=== PATIENT | female | born 1970 | race Caucasian/White ===

== ENCOUNTER 2016-02-23 21:28 | Emergency (ER) | payer MEDICAID ==
--- NOTE | 2016-02-23 21:35 | ER Document Report ---
ED Medical Screen (RME) - General Stated Complaint: URINARY PROBLEM Mode of Arrival: Ambulatory Information source: Patient Notes: pt presents to the ED for c/o urinary frequency and pain with void for almost 2 weeks. Denies f/v/d, reports started after she took amoxicillin for sinus infection. She denies vaginal discharge or itching. TRAVEL OUTSIDE OF THE [place] IN LAST 30 DAYS: No - Related Data Allergies/Adverse Reactions: ibuprofen [Ibuprofen] Allergy (Verified 05/12/15 09:24) Past Medical History Pulmonary Medical History: Reports: Hx Asthma, Hx COPD Neurological Medical History: Reports: Hx Migraine Renal/ Medical History: Reports: Hx Kidney Stones GI Medical History: Reports: Hx Gastroesophageal Reflux Disease Musculoskeltal Medical History: Reports Hx Arthritis Skin Medical History: Reports Hx Cellulitis Traumatic Medical History: Reports: Hx Fractures Past Surgical History: Reports: Hx Cholecystectomy, Hx Orthopedic Surgery - right knee - Immunizations Immunizations up to date: Yes Hx Diphtheria, Pertussis, Tetanus Vaccination: No
[2016-02-23] MEDS ORDERED: PHENAZOPYRIDINE HCL 200 MG TABLET PO ONE (23:37)
--- NOTE | 2016-02-23 23:38 | ER Document Report ---
ED General - General Chief Complaint: Urinary Frequency Stated Complaint: URINARY PROBLEM Mode of Arrival: Ambulatory Information source: Patient Notes: 45 yr old female presents with complaints of 2 week duration of burning on urination. pressure in the bladder and urinary frequency. pt denies any fevers or chills, nausea or vomiting. pt admits to mild chronic back pain TRAVEL OUTSIDE OF THE [place] IN LAST 30 DAYS: No - HPI Onset: Other - 2 week duration Onset/Duration: Persistent Quality of pain: Pressure Severity: Mild Pain Level: 1 Associated symptoms: Other Exacerbated by: Other - urination Relieved by: Denies Similar symptoms previously: Yes Recently seen / treated by doctor: No - Related Data Allergies/Adverse Reactions: ibuprofen [Ibuprofen] Allergy (Verified 05/12/15 09:24) Past Medical History - General Information source: Patient - Social History Smoking Status: Current Every Day Smoker Cigarette use (# per day): No Chew tobacco use (# tins/day): No Smoking Education Provided: No Frequency of alcohol use: None Drug Abuse: None Family History: Reviewed & Not Pertinent Pulmonary Medical History: Reports: Hx Asthma, Hx COPD Neurological Medical History: Reports: Hx Migraine Renal/ Medical History: Reports: Hx Kidney Stones. Denies: Hx Peritoneal Dialysis GI Medical History: Reports: Hx Gastroesophageal Reflux Disease Musculoskeltal Medical History: Reports Hx Arthritis Skin Medical History: Reports Hx Cellulitis Traumatic Medical History: Reports: Hx Fractures Past Surgical History: Reports: Hx Cholecystectomy, Hx Orthopedic Surgery - right knee - Immunizations Immunizations up to date: Yes Hx Diphtheria, Pertussis, Tetanus Vaccination: No Review of Systems - Review of Systems Notes: REVIEW OF SYSTEMS: CONSTITUTIONAL : Denies fever, chills, or sweats. Denies recent illness. EENT: Denies eye, ear, throat, or mouth pain or symptoms. Denies nasal or sinus congestion or discharge. Denies throat, tongue, or mouth swelling or difficulty swallowing. CARDIOVASCULAR: Denies chest pain. Denies palpitations or racing or irregular heart beat. Denies ankle edema. RESPIRATORY: Denies cough, cold, or chest congestion. Denies shortness of breath, difficulty breathing, or wheezing. GASTROINTESTINAL: Denies abdominal pain or distention. Denies nausea, vomiting , or diarrhea. Denies blood in vomitus, stools, or per rectum. Denies black, tarry stools. Denies constipation. GENITOURINARY: admits to pressure sensaiton, burning and frequency FEMALE GENITOURINARY: Denies vaginal bleeding, heavy or abnormal periods, irregular periods. Denies vaginal discharge or odor. MUSCULOSKELETAL: Denies back or neck pain or stiffness. Denies joint pain or swelling. SKIN: Denies rash, lesions or sores. HEMATOLOGIC : Denies easy bruising or bleeding. LYMPHATIC: Denies swollen, enlarged glands. NEUROLOGICAL: Denies confusion or altered mental status. Denies passing out or loss of consciousness. Denies dizziness or lightheadedness. Denies headache. Denies weakness or paralysis or loss of use of either side. Denies problems with gait or speech. Denies sensory loss, numbness, or tingling. Denies seizures. PSYCHIATRIC: Denies anxiety or stress. Denies depression, suicidal ideation, or homicidal ideation. ALL OTHER SYSTEMS REVIEWED AND NEGATIVE. Dictation was performed using [employer] voice recognition software PHYSICAL EXAMINATION: GENERAL: Well-appearing, well-nourished and in no acute distress. HEAD: Atraumatic, normocephalic. EYES: Pupils equal round and reactive to light, extraocular movements intact, conjunctiva are normal. ENT: Nares patent, oropharynx clear without exudates. Moist mucous membranes. NECK: Normal range of motion, supple without lymphadenopathy LUNGS: Breath sounds clear to auscultation bilaterally and equal. No wheezes rales or rhonchi. HEART: Regular rate and rhythm without murmurs ABDOMEN: Soft, nontender, nondistended abdomen. No guarding, no rebound. No masses appreciated. mild suprapubic pressure no cva tendernes Female : deferred Musculoskeletal: Normal range of motion, no pitting or edema. No cyanosis. NEUROLOGICAL: Cranial nerves grossly intact. Normal speech, normal gait. Normal sensory, motor exams PSYCH: Normal mood, normal affect. SKIN: Warm, Dry, normal turgor, no rashes or lesions noted. Physical Exam - Vital signs Vitals: Temp Pulse Resp BP Pulse Ox 98.1 F 89 20 132/83 H 95 02/23/16 21:37 02/23/16 21:37 02/23/16 21:37 02/23/16 21:37 02/23/16 21:37 Course - Re-evaluation Re-evalutation: 02/23/16 23:51 Patient has probable UTI, urinalysis is pending. pyridium and antibiotics will be given as necessary 02/23/16 23:59 Urinalysis is consistent with a UTI, patient will be started on antibiotics and is otherwise stable for discharge After performing a Medical Screening Examination, I estimate there is LOW risk for ACUTE APPENDICITIS, BOWEL OBSTRUCTION, ACUTE CHOLECYSTITIS, PERFORATED DIVERTICULITIS, INCARCERATED HERNIA, PANCREATITIS, PELVIC INFLAMMATORY DISEASE, PERFORATED ULCER, ECTOPIC , or TUBO-OVARIAN ABSCESS, thus I consider the discharge disposition reasonable. Also, there is no evidence or peritonitis , sepsis, or toxicity. The patient and I have discussed the diagnosis and risks , and we agree with discharging home with close follow-up with the understanding that symptoms and presentations can change. We also discussed returning to the Emergency Department immediately if new or worsening symptoms occur. We have discussed the symptoms which are most concerning (e.g., bloody stool, fever, changing or worsening pain, vomiting) that necessitate immediate return. - Vital Signs Vital signs: Temp Pulse Resp BP Pulse Ox 98.1 F 89 20 132/83 H 95 02/23/16 21:37 02/23/16 21:37 02/23/16 21:37 02/23/16 21:37 02/23/16 21:37 - Laboratory Laboratory results interpreted by me: 02/23/16 23:20 Urine Protein 30 H Urine Ketones TRACE H Urine Urobilinogen 2.0 H Ur Leukocyte Esterase LARGE H Discharge - Discharge Clinical Impression: Increased frequency of urination Urinary tract infection Qualifiers: Urinary tract infection type: acute cystitis Hematuria presence: without hematuria Qualified Code(s): N30.00 - Acute cystitis without hematuria Condition: Stable Disposition: HOME, SELF-CARE Instructions: Urinary Tract Infection ([facility]) Prescriptions: Cephalexin Monohydrate [Keflex 500 mg Capsule] 500 mg PO BID #10 capsule Phenazopyridine HCl [Pyridium 200 mg Tablet] 200 mg PO TID #15 tablet Referrals: NADIRA ERVIN MD [Primary Care Provider] - Follow up in 1 week
[2016-02-23 23:57] LABS: APPEARANCE,URINE SLIGHTLY-CLOUDY; BILIRUBIN,URINE NEGATIVE (NEGATIVE); GLUCOSE, URINE NEGATIVE (NEGATIVE); KETONES,URINE TRACE mg/dL (NEGATIVE); LEUKOCYTE ESTERASE,URINE LARGE (NEGATIVE); NITRITE,URINE NEGATIVE (NEGATIVE); PROTEIN,URINE 30 mg/dL (NEGATIVE); URINE SPECIFIC GRAVITY 1.028
[2016-02-23] MEDS ORDERED: CEPHALEXIN 500 MG CAPSULE PO ONE (23:59)
[2016-02-24 00:22] VITALS: BP 137/77
== END 2016-02-24 00:15 | disposition home or self-care (01) ==
LOC: ER 21:28
DX: N30.00 Acute cystitis without hematuria (principal); R35.0 Frequency of micturition; R30.0 Dysuria; M54.9 Dorsalgia, unspecified; G89.29 Other chronic pain; J45.909 Unspecified asthma, uncomplicated; J44.9 Chronic obstructive pulmonary disease, unspecified; F17.200 Nicotine dependence, unspecified, uncomplicated; Z88.6 Allergy status to analgesic agent; Z87.442 Personal history of urinary calculi
CPT/HCPCS: 99283; 87086; 81025; 87088; 81001; 87186; J3490

== ENCOUNTER 2016-04-05 18:15 | Emergency (ER) | payer MEDICAID ==
[2016-04-05 18:20] VITALS: BP 127/76
--- NOTE | 2016-04-05 18:49 | ER Document Report ---
ED Medical Screen (RME) - General Stated Complaint: LEFT LEG PAIN Mode of Arrival: Ambulatory Information source: Patient Notes: Patient was tripped by a dog on a leash and the cord wrapped around her left ankle. Patient with abrasion to left anterior ankle. I have greeted and performed a rapid initial assessment of this patient. A comprehensive ED assessment and evaluation of the patient, analysis of test results and completion of the medical decision making process will be conducted by additional ED providers. TRAVEL OUTSIDE OF THE [place] IN LAST 30 DAYS: No - Related Data Allergies/Adverse Reactions: ibuprofen [Ibuprofen] Allergy (Verified 04/05/16 18:47) Past Medical History Pulmonary Medical History: Reports: Hx Asthma, Hx COPD Neurological Medical History: Reports: Hx Migraine Renal/ Medical History: Reports: Hx Kidney Stones. Denies: Hx Peritoneal Dialysis GI Medical History: Reports: Hx Gastroesophageal Reflux Disease Musculoskeltal Medical History: Reports Hx Arthritis Skin Medical History: Reports Hx Cellulitis Traumatic Medical History: Reports: Hx Fractures Past Surgical History: Reports: Hx Cholecystectomy, Hx Orthopedic Surgery - right knee - Immunizations Immunizations up to date: Yes Hx Diphtheria, Pertussis, Tetanus Vaccination: No Physical Exam - Vital signs Vitals: Temp Pulse Resp BP Pulse Ox 98.3 F 95 16 127/76 H 96 04/05/16 18:19 04/05/16 18:19 04/05/16 18:19 04/05/16 18:19 04/05/16 18:19 - Skin Skin irregularity: other - Operation anterior aspect of left ankle Course - Vital Signs Vital signs: Temp Pulse Resp BP Pulse Ox 98.3 F 95 16 127/76 H 96 04/05/16 18:19 04/05/16 18:19 04/05/16 18:19 04/05/16 18:19 04/05/16 18:19
[2016-04-05] MEDS ORDERED: DIPH/PERTUSS(ACELL)/TETANUS VAC/PF 0.5 ML SYR (>=10YO) IM ONE (20:43)
[2016-04-05] MEDS ORDERED: TRAMADOL HCL 50 MG TABLET PO ONE (20:45)
--- NOTE | 2016-04-05 20:45 | ER Document Report ---
ED Extremity Problem, Lower - General Chief Complaint: Ankle Pain Stated Complaint: LEFT LEG PAIN Mode of Arrival: Ambulatory Notes: Patient is a 45-year-old female who comes in after her family dog wrapped its leash around her leg. Patient has an abrasion to her left leg. Patient is also complaining of ankle pain. Patient did not fall. No other injuries. Patient is unsure of her last tetanus but states it was greater than 5 years. Patient is able to weight-bear but it is painful. TRAVEL OUTSIDE OF THE [place] IN LAST 30 DAYS: No - HPI Patient complains to provider of: Pain Location: Ankle, Leg Occurred: Yesterday Where: Home Quality of pain: Dull Severity: Moderate Pain Level: 2 Recent injury: Yes Exacerbated by: Movement Relieved by: Rest - Related Data Allergies/Adverse Reactions: ibuprofen [Ibuprofen] Allergy (Verified 04/05/16 18:47) Past Medical History - General Information source: Patient - Social History Smoking Status: Never Smoker Chew tobacco use (# tins/day): No Frequency of alcohol use: None Drug Abuse: None Family History: Reviewed & Not Pertinent Patient has suicidal ideation: No Patient has homicidal ideation: No Pulmonary Medical History: Reports: Hx Asthma, Hx COPD Neurological Medical History: Reports: Hx Migraine Renal/ Medical History: Reports: Hx Kidney Stones. Denies: Hx Peritoneal Dialysis GI Medical History: Reports: Hx Gastroesophageal Reflux Disease Musculoskeltal Medical History: Reports Hx Arthritis Skin Medical History: Reports Hx Cellulitis Traumatic Medical History: Reports: Hx Fractures Past Surgical History: Reports: Hx Cholecystectomy, Hx Orthopedic Surgery - right knee - Immunizations Immunizations up to date: Yes Hx Diphtheria, Pertussis, Tetanus Vaccination: No Review of Systems - Review of Systems Constitutional: No symptoms reported EENT: No symptoms reported Cardiovascular: No symptoms reported Respiratory: No symptoms reported Gastrointestinal: No symptoms reported Genitourinary: No symptoms reported Female Genitourinary: No symptoms reported Musculoskeletal: See HPI Skin: See HPI Hematologic/Lymphatic: No symptoms reported Neurological/Psychological: No symptoms reported Physical Exam - Vital signs Vitals: Temp Pulse Resp BP Pulse Ox 98.3 F 95 16 127/76 H 96 04/05/16 18:19 04/05/16 18:19 04/05/16 18:19 04/05/16 18:19 04/05/16 18:19 Interpretation: Normal - General General appearance: Appears well, Alert - HEENT Head: Normocephalic, Atraumatic Eyes: Normal Pupils: PERRL - Respiratory Respiratory status: No respiratory distress Chest status: Nontender Breath sounds: Normal Chest palpation: Normal - Cardiovascular Rhythm: Regular Heart sounds: Normal auscultation Murmur: No - Abdominal Inspection: Normal Distension: No distension Bowel sounds: Normal Tenderness: Nontender Organomegaly: No organomegaly - Back Back: Normal, Nontender - Extremities General upper extremity: Normal inspection, Nontender, Normal color, Normal ROM , Normal temperature General lower extremity: Tender, Normal color, Normal ROM, Normal temperature. No: Michele's sign Hip: Normal Thigh: Normal Knee: Normal Calf: Normal Ankle: Tender - Anteriorly. No tenderness to palp patient over medial or lateral malleolus. Sensation intact. Pulses intact. Abrasion over distal left tibia. No erythema or discharge. No bleeding. - Neurological Neuro grossly intact: Yes Cognition: Normal Orientation: AAOx4 Cambria Coma Scale Eye Opening: Spontaneous Cambria Coma Scale Verbal: Oriented [place] Coma Scale Motor: Obeys Commands Nick Coma Scale Total: 15 Speech: Normal Motor strength normal: LUE, RUE, LLE, RLE Sensory: Normal - Psychological Associated symptoms: Normal affect, Normal mood - Skin Skin Temperature: Warm Skin Moisture: Dry Skin Color: Normal Course - Re-evaluation Re-evalutation: 04/05/16 Acute findings on x-ray. Patient will be given an updated tetanus shot. Patient is not diabetic. No evidence for cellulitis. Continue bacitracin to leg. Will be given Dandy wrap for ankle. Stable for discharge home. Patient has crutches at home. Follow-up with PMD. Return if any worsening or concerning symptoms. Stable for discharge. - Vital Signs Vital signs: Temp Pulse Resp BP Pulse Ox 98.3 F 95 16 127/76 H 96 04/05/16 18:19 04/05/16 18:19 04/05/16 18:19 04/05/16 18:19 04/05/16 18:19 - Diagnostic Test Radiology reviewed: Reports reviewed Procedures - Immobilization Left Ankle Pre-Proc Neuro Vasc Exam: Normal Immobilizer type: Dandy wrap Performed by: SEJAL Post-Proc Neuro Vasc Exam: Normal Alignment checked and good: Yes Discharge - Discharge Clinical Impression: Lower leg abrasion, Muscle strain of left ankle Condition: Stable Disposition: HOME, SELF-CARE Instructions: Abrasions (OM), Muscle Strain (OM), Tetanus Immunization Given ([facility]) Prescriptions: Tramadol HCl [Ultram 50 mg Tablet] 50 mg PO BIDP PRN #20 tablet PRN Reason: Forms: Return to Work
== END 2016-04-05 21:10 | disposition home or self-care (01) ==
LOC: ER 18:15
DX: S96.912A Strain of unspecified muscle and tendon at ankle and foot level, left foot, initial encounter (principal); S80.812A Abrasion, left lower leg, initial encounter; W23.0XXA Caught, crushed, jammed, or pinched between moving objects, initial encounter; Y92.009 Unspecified place in unspecified non-institutional (private) residence as the place of occurrence of the external cause; J44.9 Chronic obstructive pulmonary disease, unspecified; J45.909 Unspecified asthma, uncomplicated; Z88.6 Allergy status to analgesic agent; Z23 Encounter for immunization
CPT/HCPCS: 90471; 90715; 99283

== ENCOUNTER 2016-12-09 19:32 | Emergency (ER) | payer MEDICAID ==
[2016-12-09] MEDS ORDERED: DIAZEPAM 5 MG TABLET PO ONE (21:53)
--- NOTE | 2016-12-09 21:57 | ER Document Report ---
HPI - HPI Patient complains to provider of: lower back pain Pain Level: 5 Context: Patient is a 46-year-old female comes emergency department for chief complaint of lower back pain. She states that she was lying on her bed and her 40 pound dog jumped on her, she states that the area has become tighter and more painful to move over the last 24 hours. She denies radiating pain, numbness, loss of bowel or bladder control, midline pain. She denies any other injuries or any other symptoms. - REPRODUCTIVE Reproductive: DENIES: : - DERM Skin Color: Normal Past Medical History - General Information source: Patient - Social History Smoking Status: Current Every Day Smoker Drug Abuse: None Lives with: Spouse/Significant other Family History: Reviewed & Not Pertinent Patient has suicidal ideation: No Patient has homicidal ideation: No Pulmonary Medical History: Reports: Hx Asthma, Hx COPD Neurological Medical History: Reports: Hx Migraine Renal/ Medical History: Reports: Hx Kidney Stones. Denies: Hx Peritoneal Dialysis GI Medical History: Reports: Hx Gastroesophageal Reflux Disease Musculoskeltal Medical History: Reports Hx Arthritis Skin Medical History: Reports Hx Cellulitis Traumatic Medical History: Reports: Hx Fractures Past Surgical History: Reports: Hx Cholecystectomy, Hx Orthopedic Surgery - right knee - Immunizations Immunizations up to date: Yes Hx Diphtheria, Pertussis, Tetanus Vaccination: No Vertical Provider Document - CONSTITUTIONAL General Appearance: WD/WN, No Apparent Distress - Patient moves stiffly but otherwise she is in no distress - INFECTION CONTROL TRAVEL OUTSIDE OF THE [place] IN LAST 30 DAYS: No - HEENT HEENT: Atraumatic, Normocephalic - NECK Neck: Normal Inspection - RESPIRATORY Respiratory: Breath Sounds Normal, No Respiratory Distress O2 Sat by Pulse Oximetry: 97 - CARDIOVASCULAR Cardiovascular: Regular Rate, Regular Rhythm - GI/ABDOMEN Gastrointestinal: Abdomen Soft, Abdomen Non-Tender - BACK Back: negative: Normal Inspection - Pain over the bilateral paralumbar muscular areas, no midline tenderness, no saddle anesthesia, negative straight leg raise , normal upper and lower extremity range of motion, strength, distal neurovascular exam - MUSCULOSKELETAL/EXTREMETIES Musculoskeletal/Extremeties: MAEW, FROM, Non-Tender - DERM Integumentary: Warm - There are leach over her back in long lines, appear to be scratches, no broken skin, no bleeding, no other abnormalities noted over the skin Course - Re-evaluation Re-evalutation: No open wounds or abrasions requiring treatment or antibiotics. Examination is consistent with muscular skeletal strain with no concerning abnormalities, no saddle anesthesia, no midline tenderness, no numbness, ambulates without difficulty, unremarkable vital signs, no red flag symptoms or findings. Treating symptomatically. Discussed follow-up and return precautions. Patient states understanding and agreement. - Vital Signs Vital signs: Temp Pulse Resp BP Pulse Ox 98.3 F 85 20 145/104 H 97 12/09/16 19:55 12/09/16 19:55 12/09/16 19:55 12/09/16 19:55 12/09/16 19:55 Discharge - Discharge Clinical Impression: Lower back pain Qualifiers: Chronicity: acute Back pain laterality: bilateral Sciatica presence: without sciatica Qualified Code(s): M54.5 - Low back pain Condition: Stable Disposition: HOME, SELF-CARE Additional Instructions: Your examination is consistent with muscular strain of the lower back. Take the prescribed medication, apply heat to your back, rest your back, avoid lifting or twisting for the next several days. Follow-up with primary care. Return to the emergency department for any concerning or worsening symptoms including numbness, loss of bowel or bladder control, fever, or any other concerning symptoms. Prescriptions: Methocarbamol [Robaxin 750 mg Tablet] 750 mg PO Q6 #20 tablet
[2016-12-09 22:13] VITALS: BP 135/73
== END 2016-12-09 22:13 | disposition home or self-care (01) ==
LOC: ER 19:32
DX: M54.5 Low back pain (principal); W54.1XXA Struck by dog, initial encounter; J44.9 Chronic obstructive pulmonary disease, unspecified; F17.200 Nicotine dependence, unspecified, uncomplicated
CPT/HCPCS: 99283; J3490

== ENCOUNTER 2016-12-22 12:44 | Emergency (ER) | payer MEDICAID ==
[2016-12-22 13:01] VITALS: BP 141/61
--- NOTE | 2016-12-22 14:14 | ER Document Report ---
HPI - HPI Pain Level: 5 Notes: Patient is a 46-year-old female with no significant medical history presents the ED complaining of left ankle pain x2 days. Patient states that she is always twisting her ankles and has large dogs that usually jump on her at times as well. Patient states that the pain in the ankles anterior. Patient states that movements make the pain worse. She has no numbness or tingling. She has not noticed any obvious redness or bruising. Patient states that she does have some swelling on occasion of left ankle. She denies any history of gout. patient denies any IV drug use. Denies any headache, fever, chest pain, palpitations, syncope, cough, shortness of breath, wheeze, dyspnea, abdominal pain, nausea/vomiting/diarrhea, dysuria, hematuria, back pain, loss of control of bowel or bladder, numbness/tingling, saddle anesthesia, muscle paralysis/ weakness, or rash. - ROS Notes: REVIEW OF SYSTEMS: CONSTITUTIONAL : Denies fever, chills, or sweats. Denies recent illness. EENT: Denies eye, ear, throat, or mouth pain or symptoms. Denies nasal or sinus congestion or discharge. Denies throat, tongue, or mouth swelling or difficulty swallowing. CARDIOVASCULAR: Denies chest pain. Denies palpitations or racing or irregular heart beat. Denies ankle edema. RESPIRATORY: Denies cough, cold, or chest congestion. Denies shortness of breath, difficulty breathing, or wheezing. GASTROINTESTINAL: Denies abdominal pain or distention. Denies nausea, vomiting , or diarrhea. Denies blood in vomitus, stools, or per rectum. Denies black, tarry stools. Denies constipation. GENITOURINARY: Denies difficulty urinating, painful urination, burning, frequency, blood in urine, or discharge. MUSCULOSKELETAL: see hpi SKIN: Denies rash, lesions or sores. NEUROLOGICAL: Denies confusion or altered mental status. Denies passing out or loss of consciousness. Denies dizziness or lightheadedness. Denies headache. Denies weakness or paralysis or loss of use of either side. Denies problems with gait or speech. Denies sensory loss, numbness, or tingling. ALL OTHER SYSTEMS REVIEWED AND NEGATIVE. Dictation was performed using [employer] voice recognition software - REPRODUCTIVE Reproductive: DENIES: : - DERM Skin Color: Normal Past Medical History - Social History Smoking Status: Unknown if Ever Smoked Family History: Reviewed & Not Pertinent Patient has suicidal ideation: No Patient has homicidal ideation: No Pulmonary Medical History: Reports: Hx Asthma, Hx COPD Neurological Medical History: Reports: Hx Migraine Renal/ Medical History: Reports: Hx Kidney Stones. Denies: Hx Peritoneal Dialysis GI Medical History: Reports: Hx Gastroesophageal Reflux Disease Musculoskeltal Medical History: Reports Hx Arthritis Skin Medical History: Reports Hx Cellulitis Traumatic Medical History: Reports: Hx Fractures Past Surgical History: Reports: Hx Cholecystectomy, Hx Orthopedic Surgery - right knee - Immunizations Immunizations up to date: Yes Hx Diphtheria, Pertussis, Tetanus Vaccination: No Vertical Provider Document - CONSTITUTIONAL Agree With Documented VS: Yes Notes: PHYSICAL EXAMINATION: GENERAL: Well-appearing, well-nourished and in no acute distress. LUNGS: Breath sounds clear to auscultation bilaterally and equal. No wheezes rales or rhonchi. HEART: Regular rate and rhythm without murmurs, rubs, gallops. Musculoskeletal: Lt ankle/foot: FROM to passive/active. Strength 5+/5. No obvious swelling, deformity, abrasion, ecchymosis. N/V intact distal. + mild tenderness to the anteroproximal ankle. No other bony tenderness. Achilles intact. Extremities: No cyanosis, clubbing, or edema b/l. Peripheral pulses 2+. Capillary refill less than 3 seconds. NEUROLOGICAL: Normal speech, limping gait. Normal sensory, motor exams PSYCH: Normal mood, normal affect. SKIN: Warm, Dry, normal turgor, no rashes or lesions noted. - INFECTION CONTROL TRAVEL OUTSIDE OF THE [place] IN LAST 30 DAYS: No - RESPIRATORY O2 Sat by Pulse Oximetry: 95 Course - Re-evaluation Re-evalutation: 12/22/16 15:11 Patient is an afebrile, well-hydrated, 46-year-old female who presents the ED with left ankle pain, suspect strain versus sprain. Vitals are stable. PE is otherwise unremarkable for any neurovascular compromise, obvious tendon/ ligament rupture, obvious fracture or dislocation. X-ray was unremarkable for any acute pathology aside from soft tissue swelling. Low suspicion for any sepsis, septic joint, or other systemic emergent condition at this time. An ankle stirrup splint was placed today along with crutches provided. Conservative measures for symptoms. Recheck with your PCM in 3-5 days. Consider consult with orthopedics and/or physical therapy. Return to the ED with any worsening/concerning symptoms otherwise as reviewed in discharge. Patient is in agreement. - Vital Signs Vital signs: Temp Pulse Resp BP Pulse Ox 98.7 F 104 H 18 141/61 H 95 12/22/16 12:59 12/22/16 12:59 12/22/16 12:59 12/22/16 12:59 12/22/16 12:59 Discharge - Discharge Clinical Impression: Left ankle pain Qualifiers: Chronicity: acute Qualified Code(s): M25.572 - Pain in left ankle and joints of left foot Condition: Stable Disposition: HOME, SELF-CARE Instructions: Ankle Stirrup Splint ([facility]), Use of Crutches ([facility]), Ice & Elevation ([facility]), Sprained Ankle ([facility]) Additional Instructions: Rest, Ice, Compression, Elevation Use splint/crutches as directed Tylenol/ibuprofen as needed Light stretches daily Strength exercises as able Moist heat and massage may help F/u with your PCP in 3-5 days for a recheck Consider consult(s) with Orthopedics/physical therapy for ongoing/worsening symptoms Return to the ED with any worsening symptoms and/or development of fever, headache, chest pain, palpitations, syncope, shortness of breath, trouble breathing, abdominal pain, n/v/d, muscle weakness/paralysis, numbness/tingling, swelling, redness, or other worsening symptoms that are concerning to you. Referrals: [facility] [Provider Group] - Follow up as needed
--- NOTE | 2016-12-22 15:00 | RADIOLOGY REPORT (SQ) ---
EXAM DESCRIPTION: ANKLE LEFT COMPLETE COMPLETED DATE/TIME: 12/22/2016 2:18 pm REASON FOR STUDY: left ankle pain COMPARISON: 04/05/2016 NUMBER OF VIEWS: Three views. TECHNIQUE: AP, lateral, and oblique radiographic images acquired of the left ankle. LIMITATIONS: None. FINDINGS: MINERALIZATION: Normal. BONES: No acute fracture or dislocation. No worrisome bone lesions. JOINTS: No effusions. SOFT TISSUES: Diffuse swelling. No foreign body. OTHER: No other significant finding. IMPRESSION: Soft tissue injury. TECHNICAL DOCUMENTATION: JOB ID: [id number] [employer]- All Rights Reserved
== END 2016-12-22 15:42 | disposition home or self-care (01) ==
LOC: ER 12:44
DX: M25.572 Pain in left ankle and joints of left foot (principal); M79.89 Other specified soft tissue disorders; J44.9 Chronic obstructive pulmonary disease, unspecified
CPT/HCPCS: 99283; 73610; L1902

== ENCOUNTER 2017-02-27 17:12 | Emergency (ER) | payer MEDICAID ==
[2017-02-27] MEDS ORDERED: LIDOCAINE 2% VISCOUS SOLN 20 ML UDCUP PO ONE (19:35)
--- NOTE | 2017-02-27 19:40 | ER Document Report ---
HPI - HPI Pain Level: 5 Notes: Patient is a 46-year-old female who presents the ED complaining of right lower jaw swelling and dental pain 2 days. Patient states that she has had a decreased p.o. intake due to the pain, but is still drinking plenty of fluids. She is urinating normally and having normal bowel movements. The pain in her jaw radiates up towards her cheek and towards her rt lateral neck. She has not noticed any obvious abscess or discharge otherwise. Patient states that she does have bad dentition and has had infections in the past. No other concerns or complaints at this time. Denies any headache, fever, head injury, changes in vision/speech/mentation/hearing, URI, sore throat, chest pain, palpitations, syncope, cough, shortness of breath, wheeze, dyspnea, abdominal pain, nausea/ vomiting/diarrhea, urinary retention, dysuria, hematuria, loss of control of bowel or bladder, numbness/tingling, or rash. - ROS Notes: REVIEW OF SYSTEMS: CONSTITUTIONAL : Denies fever, chills, or sweats. Denies recent illness. EENT: see hpi CARDIOVASCULAR: Denies chest pain. Denies palpitations or racing or irregular heart beat. RESPIRATORY: Denies cough, cold, or chest congestion. Denies shortness of breath, difficulty breathing, or wheezing. GASTROINTESTINAL: Denies abdominal pain or distention. Denies nausea, vomiting , or diarrhea. Denies blood in vomitus, stools, or per rectum. Denies black, tarry stools. Denies constipation. GENITOURINARY: Denies difficulty urinating, painful urination, burning, frequency, blood in urine, or discharge. MUSCULOSKELETAL: Denies back or neck pain or stiffness. Denies joint pain or swelling. SKIN: Denies rash, lesions or sores. NEUROLOGICAL: Denies confusion or altered mental status. Denies passing out or loss of consciousness. Denies dizziness or lightheadedness. Denies headache. Denies problems with gait or speech. Denies sensory loss, numbness, or tingling. Denies seizures. ALL OTHER SYSTEMS REVIEWED AND NEGATIVE. Dictation was performed using [employer] voice recognition software - REPRODUCTIVE Reproductive: DENIES: : Past Medical History - Social History Smoking Status: Current Every Day Smoker Family History: Reviewed & Not Pertinent Pulmonary Medical History: Reports: Hx Asthma, Hx COPD Neurological Medical History: Reports: Hx Migraine Renal/ Medical History: Reports: Hx Kidney Stones. Denies: Hx Peritoneal Dialysis GI Medical History: Reports: Hx Gastroesophageal Reflux Disease Musculoskeltal Medical History: Reports Hx Arthritis Skin Medical History: Reports Hx Cellulitis Traumatic Medical History: Reports: Hx Fractures Past Surgical History: Reports: Hx Cholecystectomy, Hx Orthopedic Surgery - right knee - Immunizations Immunizations up to date: Yes Hx Diphtheria, Pertussis, Tetanus Vaccination: No Vertical Provider Document - CONSTITUTIONAL Agree With Documented VS: Yes Notes: PHYSICAL EXAMINATION: GENERAL: Well-appearing, well-nourished and in no acute distress. A&ox4. Answers questions appropriately. HEAD: Atraumatic, normocephalic. EYES: Pupils equal round and reactive to light, extraocular movements intact, sclera anicteric, conjunctiva are normal. ENT: EAC clear b/l. TM's intact b/l without erythema, fluid, or perforation. Nares patent and without discharge. oropharynx clear without exudates. No tonsilar hypertrophy or erythema. Moist mucous membranes. No sinus tenderness. Uvula midline. No palatine shift. No tongue protrusion. No respiratory compromise. Mouth: + mild swelling to the rt lower anterior jaw. Poor dentition throughout. + decay and gingivitis. No obvious abscess or discharge noted. + tenderness to tooth #27-29. NECK: Normal range of motion, supple without lymphadenopathy. No rigidity/ meningismus. LUNGS: Breath sounds clear to auscultation bilaterally and equal. No wheezes rales or rhonchi. HEART: Regular rate and rhythm without murmurs, rubs, gallops. NEUROLOGICAL: Cranial nerves grossly intact. Normal speech, normal gait. Normal sensory, motor exams PSYCH: Normal mood, normal affect. SKIN: Warm, Dry, normal turgor, no rashes or lesions noted. - INFECTION CONTROL TRAVEL OUTSIDE OF THE [place] IN LAST 30 DAYS: No - RESPIRATORY O2 Sat by Pulse Oximetry: 97 Course - Re-evaluation Re-evalutation: 02/27/17 19:37 Patient is an afebrile, well-hydrated, 46-year-old female who presents the ED with dental pain numbers 27 through 29, suspect infection versus nerve root etiology. Vitals are stable. PE is otherwise unremarkable. No labs or imaging warranted at this time based on H&P. No incision and drainage is warranted as no abscess was palpated. Low suspicion for any meningitis, sepsis , peritonsillar/pharyngeal abscess, respiratory compromise, Dinh's, temporal arteritis, or other emergent systemic condition at this time. Patient is aware this condition can change from initial presentation and she needs to monitor symptoms closely. I will send her home with prescription for clindamycin as well as lidocaine dispense from the ED. Conservative measures otherwise for symptoms. Call to schedule an appointment with a dentist for further evaluation and management. Recheck with your PCM this week as well. Return to the ED with any worsening/concerning symptoms otherwise as reviewed in discharge. Patient is in agreement. - Vital Signs Vital signs: Temp Pulse Resp BP Pulse Ox 98.4 F 96 18 117/71 97 02/27/17 18:02 02/27/17 18:02 02/27/17 18:02 02/27/17 18:02 02/27/17 18:02 Discharge - Discharge Clinical Impression: Toothache Condition: Stable Disposition: HOME, SELF-CARE Instructions: Clindamycin ([facility]), Toothache ([facility]), Dentist Additional Instructions: [place] and floss twice daily Maintain fluid intake Take antibiotics as directed Mouthwash, salt water gargles, peroxide rinse as needed Tylenol/ibuprofen as needed Recheck with PCM this week Call today/tomorrow and schedule an appointment with your dentist for further evaluation Return to the ED with any worsening symptoms and/or development of fever, headache, facial swelling, swelling of lips/tongue/throat, trouble swallowing, drooling, hoarseness, neck pain/stiffness, chest pain, palpitations, syncope, shortness of breath, trouble breathing, abdominal pain, n/v/d, numbness/tingling , or other worsening symptoms that are concerning to you. Prescriptions: Clindamycin HCl [Cleocin 300 mg Capsule] 300 mg PO TID #30 capsule Forms: Smoking Cessation Education Referrals: [facility] [Provider Group] - Follow up as needed
[2017-02-27 20:31] VITALS: BP 122/80
== END 2017-02-27 20:31 | disposition home or self-care (01) ==
LOC: ER 17:12
DX: K08.9 Disorder of teeth and supporting structures, unspecified (principal); F17.200 Nicotine dependence, unspecified, uncomplicated; J44.9 Chronic obstructive pulmonary disease, unspecified; Z87.442 Personal history of urinary calculi; Z90.49 Acquired absence of other specified parts of digestive tract
CPT/HCPCS: 99283; J3490

== ENCOUNTER 2017-06-07 11:31 | Emergency (ER) | payer MEDICAID ==
--- NOTE | 2017-06-07 11:49 | ER Document Report ---
HPI - HPI Pain Level: 1 Notes: Patient is a 46-year-old female with no significant past medical history presents to the ED complaining of third digit pain 2-3 days. Patient states that she has 2 large dogs at home and they are constantly hitting her hand. Patient has not noticed any obvious swelling, bruising, redness, or trauma to the skin. Patient states that she does have an increase in pain when she flexes her finger. Her pain is primarily to the shaft b/w the DIP/PIP. She has no other concerns or complaints at this time. Denies any headache, fever, neck pain, URI, sore throat, chest pain, palpitations, syncope, cough, shortness of breath, wheeze, dyspnea, abdominal pain, nausea/vomiting/diarrhea, urinary retention, dysuria, hematuria, loss of control of bowel or bladder, numbness/tingling, muscle paralysis/weakness, or rash. - ROS Systems Reviewed and Negative: Yes All other systems reviewed and negative - REPRODUCTIVE Reproductive: DENIES: : Past Medical History - Social History Smoking Status: Current Every Day Smoker Family History: Reviewed & Not Pertinent Pulmonary Medical History: Reports: Hx Asthma, Hx COPD Neurological Medical History: Reports: Hx Migraine Renal/ Medical History: Reports: Hx Kidney Stones. Denies: Hx Peritoneal Dialysis GI Medical History: Reports: Hx Gastroesophageal Reflux Disease Musculoskeltal Medical History: Reports Hx Arthritis Skin Medical History: Reports Hx Cellulitis Traumatic Medical History: Reports: Hx Fractures Past Surgical History: Reports: Hx Cholecystectomy, Hx Orthopedic Surgery - right knee - Immunizations Immunizations up to date: Yes Hx Diphtheria, Pertussis, Tetanus Vaccination: No Vertical Provider Document - CONSTITUTIONAL Agree With Documented VS: Yes Notes: PHYSICAL EXAMINATION: GENERAL: Well-appearing, well-nourished and in no acute distress. LUNGS: Breath sounds clear to auscultation bilaterally and equal. No wheezes rales or rhonchi. HEART: Regular rate and rhythm without murmurs, rubs, gallops. Musculoskeletal: Left 3rd digit: FROM to passive/active. Strength 5+/5. No obvious swelling, ecchymosis, abrasion, laceration, warmth, or erythema. + tenderness to the shaft medially of the middle phalange. N/V intact distal. Extremities: No cyanosis, clubbing, or edema b/l. Peripheral pulses 2+. Capillary refill less than 3 seconds. NEUROLOGICAL: Normal speech, normal gait. Normal sensory, motor exams PSYCH: Normal mood, normal affect. SKIN: Warm, Dry, normal turgor, no rashes or lesions noted. - INFECTION CONTROL TRAVEL OUTSIDE OF THE [place] IN LAST 30 DAYS: No Course - Re-evaluation Re-evalutation: 06/07/17 13:00 Patient is an afebrile, well-hydrated, 46-year-old female who presents to the ED with left third digit pain, suspect sprain versus contusion. Vitals are acceptable. PE is otherwise unremarkable for any neurovascular compromise, obvious tendon/ligament rupture, obvious fracture/dislocation septic joint. X- ray was unremarkable for any acute pathology. No other labs or imaging warranted at this time based on H&P. Recommend conservative measures for symptoms. Recheck with your PCM in 3-5 days. Consider consult with orthopedic/ physical therapy. Return to the ED with any worsening/concerning symptoms otherwise as reviewed discharge. Patient is in agreement. - Vital Signs Vital signs: Temp Pulse Resp BP Pulse Ox 97.9 F 88 137/88 H 96 06/07/17 11:37 06/07/17 11:37 06/07/17 11:37 06/07/17 11:37 Discharge - Discharge Clinical Impression: Finger pain, left Condition: Stable Disposition: HOME, SELF-CARE Instructions: Yoan Taping (fingers) ([facility]) Additional Instructions: Rest, Ice, Compression, Elevation Tylenol/ibuprofen as needed Light stretches daily Strength exercises as able Moist heat and massage may help F/u with your PCP in 3-5 days for a recheck Consider consult(s) with Orthopedics/physical therapy for ongoing/worsening symptoms Return to the ED with any worsening symptoms and/or development of fever, headache, chest pain, palpitations, syncope, shortness of breath, trouble breathing, abdominal pain, n/v/d, muscle weakness/paralysis, numbness/tingling, swelling, redness, or other worsening symptoms that are concerning to you. Forms: Elevated Blood Pressure, Smoking Cessation Education Referrals: [facility] [Provider Group] - Follow up as needed
--- NOTE | 2017-06-07 12:49 | RADIOLOGY REPORT (SQ) ---
EXAM DESCRIPTION: HAND LEFT 3 VIEWS COMPLETED DATE/TIME: 06/07/2017 12:21 pm REASON FOR STUDY: left 3rd digit pain COMPARISON: None. EXAM PARAMETERS: NUMBER OF VIEWS: Three views. TECHNIQUE: AP, lateral and oblique radiographic images acquired of the left hand. LIMITATIONS: None. FINDINGS: MINERALIZATION: Normal. BONES: No acute fracture or dislocation. No worrisome bone lesions. JOINTS: No effusions. SOFT TISSUES: No soft tissue swelling. No foreign body. OTHER: No other significant finding. IMPRESSION: NEGATIVE STUDY OF THE LEFT HAND. NO RADIOGRAPHIC EVIDENCE OF ACUTE INJURY. TECHNICAL DOCUMENTATION: JOB ID: [id number] [employer]- All Rights Reserved Reading location - IP/workstation name: [email or web address]
[2017-06-07 13:18] VITALS: BP 141/101
== END 2017-06-07 13:19 | disposition home or self-care (01) ==
LOC: ER 11:31
DX: M79.645 Pain in left finger(s) (principal); W54.1XXA Struck by dog, initial encounter; F17.200 Nicotine dependence, unspecified, uncomplicated; J44.9 Chronic obstructive pulmonary disease, unspecified
CPT/HCPCS: 99283

== ENCOUNTER 2018-05-09 17:41 | Emergency (ER) | payer MEDICAID ==
--- NOTE | 2018-05-09 18:15 | ER Document Report ---
ED Medical Screen (RME) - General Chief Complaint: Chest Pain Stated Complaint: CHEST PAIN Time Seen by Provider: 05/09/18 18:03 Notes: 47-year-old female patient reports onset 5:30 PM today of severe sharp, stabbing substernal chest pain causing her to double over, with the pain going into the left arm. Pain also went into the back. Now it is more of a dull pain and is more in the back than the front. She has had bronchitis recently, finished a Z-Mitchell and a course of steroids. She still has her upper respiratory tract infection symptoms. I have greeted and performed a rapid initial assessment of this patient. A comprehensive ED assessment and evaluation of the patient, analysis of test results and completion of the medical decision making process will be conducted by additional ED providers. TRAVEL OUTSIDE OF THE [place] IN LAST 30 DAYS: No - Related Data Allergies/Adverse Reactions: ibuprofen [Ibuprofen] Allergy (Verified 05/09/18 17:55) Past Medical History - Social History Frequency of alcohol use: None Drug Abuse: None Pulmonary Medical History: Reports: Hx Asthma, Hx Bronchitis, Hx COPD Neurological Medical History: Reports: Hx Migraine Renal/ Medical History: Reports: Hx Kidney Stones. Denies: Hx Peritoneal Dialysis GI Medical History: Reports: Hx Gastroesophageal Reflux Disease Musculoskeltal Medical History: Reports Hx Arthritis Skin Medical History: Reports Hx Cellulitis Traumatic Medical History: Reports: Hx Fractures Past Surgical History: Reports: Hx Cholecystectomy, Hx Orthopedic Surgery - right knee - Immunizations Immunizations up to date: Yes Hx Diphtheria, Pertussis, Tetanus Vaccination: No Physical Exam - Vital signs Vitals: Temp Pulse Resp BP Pulse Ox 97.4 F 93 18 139/68 H 96 05/09/18 17:46 05/09/18 17:46 05/09/18 17:46 05/09/18 17:46 05/09/18 17:46 Course - Vital Signs Vital signs: Temp Pulse Resp BP Pulse Ox 97.4 F 93 18 139/68 H 96 05/09/18 17:46 05/09/18 17:46 05/09/18 17:46 05/09/18 17:46 05/09/18 17:46
--- NOTE | 2018-05-09 18:51 | RADIOLOGY REPORT (SQ) ---
EXAM DESCRIPTION: CHEST 2 VIEWS COMPLETED DATE/TIME: 05/09/2018 6:36 pm REASON FOR STUDY: Bronchitis, chest pain COMPARISON: 04/19/2009 TECHNIQUE: Frontal and lateral radiographic views of the chest acquired. NUMBER OF VIEWS: Two view. LIMITATIONS: None. FINDINGS: LUNGS AND PLEURA: No pneumothorax. No consolidation or pleural effusion. MEDIASTINUM AND HILAR STRUCTURES: Stable. HEART AND VASCULAR STRUCTURES: Stable. BONES: No acute findings. HARDWARE: None in the chest. OTHER: No other significant finding. IMPRESSION: NO ACUTE FINDINGS. TECHNICAL DOCUMENTATION: JOB ID: [id number] 2010 [employer]- All Rights Reserved Reading location - IP/workstation name: [email or web address]
[2018-05-09 19:11] LABS: ABSOLUTE BASOPHILS # (AUTO) 0.2 10^3/uL (0.0-0.2); ABSOLUTE EOSINOPHILS # (AUTO) 0.1 10^3/uL (0.0-0.6); ABSOLUTE LYMPHOCYTES (AUTO) 5.1 10^3/uL (0.5-4.7); ABSOLUTE MONOCYTES (AUTO) 0.9 10^3/uL (0.1-1.4); ABSOLUTE NEUT (AUTO) 12.8 10^3/uL (1.7-8.2); BASOPHILS % (AUTO) 0.9 % (0-2); EOSINOPHILS % (AUTO) 0.7 % (0-6); HEMATOCRIT 44.6 % (36.0-47.0); HEMOGLOBIN 15.1 g/dL (12.0-15.5); LYMPHOCYTES % (AUTO) 26.5 % (13-45); MEAN CORPUSCULAR HEMOGLOBIN 30.6 pg (27.0-33.4); MEAN CORPUSCULAR HGB CONC 33.8 g/dL (32.0-36.0); MEAN CORPUSCULAR VOLUME 91 fl (80-97); PLATELET COUNT 252 10^3/uL (150-450); RED BLOOD COUNT 4.93 10^6/uL (3.72-5.28); RED CELL DISTRIBUTION WIDTH 14.4 % (11.5-14.0); SEGMENTED NEUTROPHILS % (AUTO) 66.9 % (42-78); TOTAL CELLS COUNTED % (AUTO) 100 %; WHITE BLOOD COUNT 19.2 10^3/uL (4.0-10.5)
--- NOTE | 2018-05-09 19:22 | EKG REPORT ---
SEVERITY:- BORDERLINE ECG - SINUS RHYTHM BORDERLINE T ABNORMALITIES, INFERIOR LEADS : Confirmed by: Yanira Cedeño MD 09-May-2018 19:21:30
[2018-05-09 19:30] LABS: ALANINE AMINOTRANSFERASE 62 U/L (9-52); ALBUMIN 3.9 g/dL (3.5-5.0); ALKALINE PHOSPHATASE 77 U/L (38-126); ANION GAP 8 (5-19); ASPARTATE AMINO TRANSFERASE 30 U/L (14-36); BILIRUBIN,DIRECT 0.3 mg/dL (0.0-0.4); BILIRUBIN,TOTAL 0.8 mg/dL (0.2-1.3); BLOOD UREA NITROGEN 17 mg/dL (7-20); CALCIUM 9.5 mg/dL (8.4-10.2); CARBON DIOXIDE 23 mmol/L (22-30); CHLORIDE 105 mmol/L (98-107); CREATINE KINASE 36 U/L (30-135); GLUCOSE 101 mg/dL (75-110); POTASSIUM 4.3 mmol/L (3.6-5.0); SODIUM 135.9 mmol/L (137-145)
[2018-05-09 20:11] LABS: APPEARANCE,URINE CLOUDY; BILIRUBIN,URINE NEGATIVE (NEGATIVE); COLOR,URINE AMBER; GLUCOSE, URINE NEGATIVE (NEGATIVE); KETONES,URINE TRACE mg/dL (NEGATIVE); LEUKOCYTE ESTERASE,URINE LARGE (NEGATIVE); NITRITE,URINE NEGATIVE (NEGATIVE); PROTEIN,URINE NEGATIVE (NEGATIVE); URINE SPECIFIC GRAVITY 1.024
--- NOTE | 2018-05-09 20:33 | ER Document Report ---
ED General - General Chief Complaint: Chest Pain Stated Complaint: CHEST PAIN Time Seen by Provider: 05/09/18 18:03 Notes: Patient is a 47-year-old female with a past medical history of COPD, no prior cardiac history who presents with an episode of stabbing left-sided chest pain that occurred earlier today and has since resolved. Patient states that she was cleaning out a cabinet, developed an acute onset of severe, stabbing, throbbing pain over her left chest. The pain lasted approximately 15 minutes. No exacerbating or alleviating factors. Did resolve spontaneously. She denies any history of similar pain in the past. She denies any pain at the time of my assessment. Pain occurred approximately 3 hours prior to presentation. She denied any associated shortness of breath, diaphoresis, nausea or vomiting. She denies any current back, neck, jaw or chest discomfort. She denies any cardiac history. She has no history of DVT or pulmonary embolus. She does not use any form of estrogen. Denies any pleuritic component. She was recently treated for bronchitis with steroids and states that she has been coughing vigorously. Believes that her pain is muscular in origin. TRAVEL OUTSIDE OF THE [place] IN LAST 30 DAYS: No - Related Data Allergies/Adverse Reactions: ibuprofen [Ibuprofen] Allergy (Verified 05/09/18 17:55) Past Medical History - General Information source: Patient - Social History Smoking Status: Current Every Day Smoker Frequency of alcohol use: None Drug Abuse: None Lives with: Spouse/Significant other Family History: Reviewed & Not Pertinent Patient has suicidal ideation: No Patient has homicidal ideation: No Pulmonary Medical History: Reports: Hx Asthma, Hx Bronchitis, Hx COPD Neurological Medical History: Reports: Hx Migraine Renal/ Medical History: Reports: Hx Kidney Stones. Denies: Hx Peritoneal Dialysis GI Medical History: Reports: Hx Gastroesophageal Reflux Disease Musculoskeletal Medical History: Reports Hx Arthritis Skin Medical History: Reports Hx Cellulitis Traumatic Medical History: Reports: Hx Fractures Past Surgical History: Reports: Hx Cholecystectomy, Hx Orthopedic Surgery - right knee - Immunizations Immunizations up to date: Yes Hx Diphtheria, Pertussis, Tetanus Vaccination: No Review of Systems - Review of Systems Notes: Constitutional: Negative for fever. HENT: Negative for sore throat. Eyes: Negative for visual changes. Cardiovascular: Positive for chest pain. Respiratory: Negative for shortness of breath. Gastrointestinal: Negative for abdominal pain, vomiting or diarrhea. Genitourinary: Negative for dysuria. Musculoskeletal: Negative for back pain. Skin: Negative for rash. Neurological: Negative for headaches, weakness or numbness. 10 point ROS negative except as marked above and in HPI. Physical Exam - Vital signs Vitals: Temp Pulse Resp BP Pulse Ox 97.4 F 93 18 139/68 H 96 05/09/18 17:46 05/09/18 17:46 05/09/18 17:46 05/09/18 17:46 05/09/18 17:46 Interpretation: Normal Notes: PHYSICAL EXAMINATION: GENERAL: Well-appearing, well-nourished and in no acute distress. HEAD: Atraumatic, normocephalic. EYES: Pupils equal round and reactive to light, extraocular movements intact, sclera anicteric, conjunctiva are normal. ENT: nares patent, oropharynx clear without exudates. Moist mucous membranes. NECK: Normal range of motion, supple without lymphadenopathy LUNGS: Breath sounds clear to auscultation bilaterally and equal. No wheezes rales or rhonchi. HEART: Regular rate and rhythm without murmurs ABDOMEN: Soft, nontender, normoactive bowel sounds. No guarding, no rebound. No masses appreciated. EXTREMITIES: Normal range of motion, no pitting or edema. No cyanosis. NEUROLOGICAL: No focal neurological deficits. Moves all extremities spontaneously and on command. PSYCH: Normal mood, normal affect. SKIN: Warm, Dry, normal turgor, no rashes or lesions noted. Course - Re-evaluation Re-evalutation: 05/09/18 20:33 Presentation of chest pain in an otherwise well appearing patient. Low clinical suspicion for ACS given clinical history, exam, EKG without ST elevations or depressions, and negative initial troponin. HEART score less than or equal to 3. PE also seems unlikely given clinical history, absence of tachycardia or dyspnea. Patient is PERC criteria negative. CXR without evidence of pneumothorax or pneumonia. No widened mediastinum. Aortic dissection also seems unlikely given history, symmetric pulses, CXR, and vitals. 05/09/18 22:56 Delta troponin remains normal. Patient remains chest pain-free. Overall assessment: Chest pain in a patient without evidence of cardiac or other serious etiology on workup today. I discussed with patient that, based on their age, risk factors and emergency department testing today, the likelihood that their symptoms are related to a heart attack is very low (estimated risk of heart attack or over the next 30 days of less than 1%). The patient demonstrates decision making capacity and has verbalized an understanding of these risks to me. Based on this, the patient has chosen to follow-up as an outpatient. Usual chest pain return precautions reviewed. The patient states understanding and agreement with this plan. - Vital Signs Vital signs: Temp Pulse Resp BP Pulse Ox 97.4 F 93 19 122/70 95 05/09/18 17:46 05/09/18 17:46 05/09/18 20:01 05/09/18 20:01 05/09/18 20:01 - Laboratory Result Diagrams: 05/09/18 18:57 05/09/18 18:57 Laboratory results interpreted by me: 05/09/18 05/09/18 05/09/18 18:57 18:57 19:47 WBC 19.2 H RDW 14.4 H Absolute Neutrophils 12.8 H Absolute Lymphocytes 5.1 H Sodium 135.9 L ALT 62 H Urine Ketones TRACE H Urine Urobilinogen 2.0 H Ur Leukocyte Esterase LARGE H - Diagnostic Test Radiology reviewed: Image reviewed, Reports reviewed Radiology results interpreted by me: 05/09/18 21:19 Chest x-ray: No acute infiltrate or pneumothorax - EKG Interpretation by Me Additional EKG results interpreted by me: 05/09/18 21:19 Sinus rhythm, no ST elevations or depressions. QTC 414. Rate 91. Discharge - Discharge Clinical Impression: Chest pain Qualifiers: Chest pain type: unspecified Qualified Code(s): R07.9 - Chest pain, unspecified Condition: Good Disposition: HOME, SELF-CARE Additional Instructions: You were seen today for chest pain. The exact cause of your pain is unclear. However, based on your cardiac enzyme testing, chest x-ray, and EKG it does not appear that it is from an immediately life-threatening cause at this time. Although your testing here is normal is critical that you follow-up with your primary care physician for continued evaluation of this chest pain and possible stress testing. I recommended you see your physician within the next 24-48 hours to be evaluated for consideration of a stress test. Please return to emergency department immediately if you have worsening of your chest pain, shortness of breath, vomiting, become unable to exert yourself due to pain or difficulty breathing, you pass out, or have any pain that radiates into your arms, jaw, or back. Please also return if you have any additional symptoms that are concerning to you.
[2018-05-09 23:11] VITALS: BP 116/63
== END 2018-05-09 23:11 | disposition home or self-care (01) ==
LOC: ER 17:41
DX: R07.9 Chest pain, unspecified (principal); J44.9 Chronic obstructive pulmonary disease, unspecified; F17.200 Nicotine dependence, unspecified, uncomplicated; Z88.6 Allergy status to analgesic agent; Z90.49 Acquired absence of other specified parts of digestive tract; Z87.442 Personal history of urinary calculi
CPT/HCPCS: 36415; 71046; 80053; 81001; 82550; 84484; 85025; 93005; 93010; 99285

== ENCOUNTER 2018-06-26 19:59 | Emergency (ER) | payer SELFPAY ==
--- NOTE | 2018-06-26 20:10 | ER Document Report ---
HPI - HPI Patient complains to provider of: right knee pain Onset: Yesterday Onset/Duration: Persistent Quality of pain: Achy Severity: Severe Pain Level: 5 Context: Patient presents emergency department with complaints of right knee pain. Reports she tripped over her dog yesterday and landed on her knee. Since then time her knee has been hurting. Hurts to walk hurts to sit there hurts to flex or extend her knee. Patient reports history of meniscus injury in the past Associated Symptoms: None Exacerbated by: Movement, Walking Relieved by: Denies Similar symptoms previously: No Recently seen / treated by doctor: No - REPRODUCTIVE Reproductive: DENIES: : <CALE LOBATO - Last Filed: 06/26/18 20:13> - CONSTITUTIONAL Constitutional: DENIES: Fever, Chills - CARDIOVASCULAR Cardiovascular: DENIES: Chest pain - RESPIRATORY Respiratory: DENIES: Coughing - GASTROINTESTINAL Gastrointestinal: DENIES: Abdominal Pain - MUSCULOSKELETAL Musculoskeletal: REPORTS: Extremity pain - Right knee, Swelling - Right knee. DENIES: Back Pain, Neck Pain - DERM Skin Color: Normal Skin Problems: None <NIKKY CORMIER - Last Filed: 06/27/18 02:43> - HPI Time Seen by Provider: 06/26/18 20:04 Past Medical History - General Information source: Patient - Social History Smoking Status: Current Every Day Smoker Cigarette use (# per day): Yes Frequency of alcohol use: None Drug Abuse: None Lives with: Family Family History: Reviewed & Not Pertinent Patient has suicidal ideation: No Patient has homicidal ideation: No Pulmonary Medical History: Reports: Hx Asthma, Hx Bronchitis, Hx COPD Neurological Medical History: Reports: Hx Migraine Renal/ Medical History: Reports: Hx Kidney Stones. Denies: Hx Peritoneal Dialysis GI Medical History: Reports: Hx Gastroesophageal Reflux Disease Musculoskeletal Medical History: Reports Hx Arthritis Skin Medical History: Reports Hx Cellulitis Traumatic Medical History: Reports: Hx Fractures Past Surgical History: Reports: Hx Cholecystectomy, Hx Orthopedic Surgery - right knee - Immunizations Immunizations up to date: Yes Hx Diphtheria, Pertussis, Tetanus Vaccination: No <CALE LOBATO - Last Filed: 06/26/18 20:13> Vertical Provider Document - CONSTITUTIONAL Agree With Documented VS: Yes Exam Limitations: No Limitations General Appearance: WD/WN, No Apparent Distress - INFECTION CONTROL TRAVEL OUTSIDE OF THE [place] IN LAST 30 DAYS: No - HEENT HEENT: Atraumatic, Normocephalic - NECK Neck: Supple - RESPIRATORY Respiratory: No Respiratory Distress - CARDIOVASCULAR Cardiovascular: Regular Rate - MUSCULOSKELETAL/EXTREMETIES Musculoskeletal/Extremeties: MAEW, Tender - right knee ttp, no obvious injury, no erythema, no swelling, no warmth - NEURO Level of Consciousness: Awake, Alert, Appropriate - DERM Integumentary: Warm, Dry Adult Front & Back Diagram: 1 - c/o knee pain <CALE LOBATO - Last Filed: 06/26/18 20:13> Course - Re-evaluation Re-evalutation: 06/26/18 20:11 pt sent directly to x-ray. 06/26/18 20:13 report Given to Nikky Cormier <CALE LOBATO - Last Filed: 06/26/18 20:13> - Re-evaluation Re-evalutation: 06/26/18 20:42 There is no evidence of any acute fracture at this time. Capillary refill less than 3 seconds. 2+ dorsalis pedis and posterior tibial pulses. The patient will be provided crutches and Dandy wrap. She will also start taking naproxen for the pain. She states that she has taken naproxen before with no difficulties or complications. She is in agreement with this plan. Verbal discharge instructions were given to the patient. They verbalized understanding. They are stable for discharge. <NIKKY CORMIER - Last Filed: 06/27/18 02:43> Discharge <CALE LOBATO - Last Filed: 06/26/18 20:13> <NIKKY CORMIER Neeta - Last Filed: 06/27/18 02:43> - Discharge Clinical Impression: Right knee pain Qualifiers: Chronicity: acute Qualified Code(s): M25.561 - Pain in right knee Condition: Stable Disposition: HOME, SELF-CARE Instructions: Use of Crutches ([facility]), Ice & Elevation ([facility]) Additional Instructions: You are seen today in the emergency department for right knee pain. There is no fracture at this time. Please rest, apply ice, elevate your leg, and to wear an Dandy wrap to help with any swelling. You have been provided crutches please use them to keep the weight off your right leg. You have also been given naproxen. Take as directed. You could also take Tylenol 1000 mg every 6 hours for your pain. If your pain persists for the next 1 to 2 weeks, please follow-up with your primary care provider in regards to this visit. Prescriptions: Naproxen 500 mg PO BID #30 tablet
--- NOTE | 2018-06-26 20:42 | RADIOLOGY REPORT (SQ) ---
EXAM DESCRIPTION: XR KNEE 4 OR MORE VIEWS COMPLETED DATE/TME: 06/26/2018 00:00 CLINICAL HISTORY: 47 years, Female, tripped over dog yesterday. COMPARISON: 11/30/2013 NUMBER OF VIEWS: Four TECHNIQUE: Two AP, one oblique and lateral views of the right knee joint. LIMITATIONS: None. FINDINGS: Knee joint alignment is maintained. No fracture. No suprapatellar joint effusion. Soft tissues are within normal limits. IMPRESSION: No acute finding of the right knee joint. copyright 2010 [employer]- All Rights Reserved
[2018-06-26 20:57] VITALS: BP 133/86
== END 2018-06-26 20:57 | disposition home or self-care (01) ==
LOC: ER 19:59
DX: M25.561 Pain in right knee (principal); F17.210 Nicotine dependence, cigarettes, uncomplicated; Z87.442 Personal history of urinary calculi; Z90.49 Acquired absence of other specified parts of digestive tract
CPT/HCPCS: 99283

== ENCOUNTER 2018-10-01 19:42 | Emergency (ER) | payer SELFPAY ==
[2018-10-01] MEDS ORDERED: CLINDAMYCIN HCL 150 MG CAPSULE PO ONE (23:29)
[2018-10-01] MEDS ORDERED: HYDROCODONE/ACETAMINOPHEN 5-325 MG (6 TAB/ER DISP) PO PRN (23:29)
--- NOTE | 2018-10-01 23:31 | ER Document Report ---
HPI - HPI Time Seen by Provider: 10/01/18 23:10 Pain Level: 5 Context: Patient is a 48-year-old female that comes to the emergency department for chief complaint of pain and swelling to the left side of her face and jaw with pain on the gumline as well. Pain radiates up to her left ear. She denies sore throat, fever, neck pain, or any other complaints. She has known multiple dental caries and has had dental infections in the past. She denies any daily medications. - CONSTITUTIONAL Constitutional: DENIES: Fever - REPRODUCTIVE Reproductive: DENIES: : Past Medical History - General Information source: Patient - Social History Smoking Status: Current Every Day Smoker Frequency of alcohol use: None Drug Abuse: None Lives with: Spouse/Significant other Family History: Reviewed & Not Pertinent Patient has suicidal ideation: No Patient has homicidal ideation: No Pulmonary Medical History: Reports: Hx Asthma, Hx Bronchitis, Hx COPD Neurological Medical History: Reports: Hx Migraine Renal/ Medical History: Reports: Hx Kidney Stones. Denies: Hx Peritoneal Dialysis GI Medical History: Reports: Hx Gastroesophageal Reflux Disease Musculoskeletal Medical History: Reports Hx Arthritis Skin Medical History: Reports Hx Cellulitis Traumatic Medical History: Reports: Hx Fractures Past Surgical History: Reports: Hx Cholecystectomy, Hx Orthopedic Surgery - right knee - Immunizations Immunizations up to date: Yes Hx Diphtheria, Pertussis, Tetanus Vaccination: No Vertical Provider Document - CONSTITUTIONAL General Appearance: WD/WN, Obese. negative: No Apparent Distress - Patient appears uncomfortable, holding the left side of her face - INFECTION CONTROL TRAVEL OUTSIDE OF THE [place] IN LAST 30 DAYS: No - HEENT HEENT: Atraumatic, Normocephalic Mouth Diagram: 1 - Dental caries with erythema of the surrounding gumline with tenderness to palpation, no induration or fluctuance, no noted abscess, unremarkable oropharyngeal exam otherwise except for scattered caries - NECK Neck: Normal Inspection - RESPIRATORY Respiratory: Breath Sounds Normal, No Respiratory Distress - CARDIOVASCULAR Cardiovascular: Regular Rate, Regular Rhythm - GI/ABDOMEN Gastrointestinal: Abdomen Soft, Abdomen Non-Tender - BACK Back: Normal Inspection - MUSCULOSKELETAL/EXTREMETIES Musculoskeletal/Extremeties: MAEW, FROM, Non-Tender - NEURO Level of Consciousness: Awake, Alert, Appropriate - DERM Integumentary: Warm, Dry, No Rash Course - Re-evaluation Re-evalutation: Evaluation is consistent with dental infection but no noted abscess, no evidence of Dinh's angina on evaluation. Discussed treatment, follow-up, return precautions. Patient states understanding and agreement. - Vital Signs Vital signs: Temp Pulse Resp BP Pulse Ox 98.1 F 113 H 18 140/76 H 95 10/01/18 20:08 10/01/18 20:08 10/01/18 20:08 10/01/18 20:08 10/01/18 20:08 Discharge - Discharge Clinical Impression: Pain, dental, Dental infection Condition: Stable Disposition: HOME, SELF-CARE Additional Instructions: Your evaluation is consistent with a dental infection. Take antibiotics as prescribed to completion. Follow-up with the dental referral listed below For this will continue to happen. Return if you worsen including increased swelling of the face. [facility] [address], [address] Prescriptions: Clindamycin HCl [Cleocin 150 mg Capsule] 150 mg PO Q6 #56 capsule Referrals: HUY HERNANDEZ MD [Primary Care Provider] - Follow up as needed
[2018-10-01 23:46] VITALS: BP 132/72
== END 2018-10-01 23:48 | disposition home or self-care (01) ==
LOC: ER 19:42
DX: K04.7 Periapical abscess without sinus (principal); R51 Headache; F17.200 Nicotine dependence, unspecified, uncomplicated; J44.9 Chronic obstructive pulmonary disease, unspecified; Z87.442 Personal history of urinary calculi; Z90.49 Acquired absence of other specified parts of digestive tract

== ENCOUNTER 2019-02-13 13:34 | Emergency (ER) | payer SELFPAY ==
[2019-02-13] MEDS ORDERED: ACETAMINOPHEN 325 MG TABLET PO ONE (14:53)
--- NOTE | 2019-02-13 14:57 | ER Document Report ---
HPI - HPI Time Seen by Provider: 02/13/19 14:50 Pain Level: 4 Context: Patient is a 48-year-old female who presents emergency department with a chief complaint of cough, difficulty breathing, and upper respiratory symptoms. Patient's significant other had mono. Patient also has bilateral ear pain. She has had a fever. - CONSTITUTIONAL Constitutional: Comment Only: Fever - stays hot - EENT EENT: REPORTS: Sore Throat, Ear Pain - NEURO Neurology: REPORTS: Headache - RESPIRATORY Respiratory: REPORTS: Coughing - REPRODUCTIVE Reproductive: DENIES: : Past Medical History - Social History Smoking Status: Current Every Day Smoker Chew tobacco use (# tins/day): No Frequency of alcohol use: None Drug Abuse: None Family History: Reviewed & Not Pertinent Patient has suicidal ideation: No Patient has homicidal ideation: No Pulmonary Medical History: Reports: Hx Asthma, Hx Bronchitis, Hx COPD Neurological Medical History: Reports: Hx Migraine Renal/ Medical History: Reports: Hx Kidney Stones. Denies: Hx Peritoneal Dialysis GI Medical History: Reports: Hx Gastroesophageal Reflux Disease Musculoskeletal Medical History: Reports Hx Arthritis Skin Medical History: Reports Hx Cellulitis Traumatic Medical History: Reports: Hx Fractures Past Surgical History: Reports: Hx Cholecystectomy, Hx Orthopedic Surgery - right knee - Immunizations Immunizations up to date: Yes Hx Diphtheria, Pertussis, Tetanus Vaccination: No Vertical Provider Document - CONSTITUTIONAL Agree With Documented VS: Yes Exam Limitations: No Limitations General Appearance: No Apparent Distress - INFECTION CONTROL TRAVEL OUTSIDE OF THE [place] IN LAST 30 DAYS: No - HEENT HEENT: Atraumatic, Normocephalic, PERRLA, Pharyngeal Tenderness, Pharyngeal Erythema, Tympanic Membrane Red. negative: Conjuctival Injection, Pharyngeal Exudate, Tympanic Membrane Bulging - NECK Neck: Normal Inspection, Supple - RESPIRATORY Respiratory: Breath Sounds Normal, No Respiratory Distress - CARDIOVASCULAR Cardiovascular: Regular Rhythm, Tachycardia Pulses: Normal: Radial - MUSCULOSKELETAL/EXTREMETIES Musculoskeletal/Extremeties: FROM - NEURO Level of Consciousness: Awake, Alert, Appropriate Motor/Sensory: No Motor Deficit, No Sensory Deficit - DERM Integumentary: Warm, Dry, No Rash Course - Re-evaluation Re-evalutation: 02/13/19 The screening shows that she has influenza D. Monotest is negative. She also has otitis media. She will be started on amoxicillin. No tenderness noted to mastoid process. Follow-up precautions were given. Verbal discharge instructions were given to the patient. They verbalized understanding. They are stable for discharge. - Vital Signs Vital signs: Temp Pulse Resp BP Pulse Ox 98.5 F 104 H 18 149/91 H 98 02/13/19 13:37 02/13/19 13:37 02/13/19 13:37 02/13/19 13:37 02/13/19 13:37 Discharge - Discharge Clinical Impression: Influenza B Otitis media Qualifiers: Otitis media type: suppurative Chronicity: acute Laterality: bilateral Recurrence: not specified as recurrent Spontaneous tympanic membrane rupture: without spontaneous rupture Qualified Code(s): H66.003 - Acute suppurative otitis media without spontaneous rupture of ear drum, bilateral Condition: Stable Disposition: HOME, SELF-CARE Additional Instructions: You were seen today for ear pain and have an acute ear infection. Please take the antibiotic that has been prescribed until it is completed even if you are feeling better before you have finished all the antibiotics. For your pain: Take ibuprofen 600 mg and acetaminophen 1000 mg every 6 hours together as needed for pain. Return if you have worsening of your pain, loss of hearing in the affected ear, worsening facial pain, headaches, pass out, or any other symptoms that are worrisome to you. You also have influenza B. Make sure you rest, get plenty of fluids, and take ibuprofen and Tylenol for pain relief. Follow-up with 1 of the clinics below. Prescriptions: Amoxicillin Trihydrate [Amoxil 875 mg Tablet] 1 tab PO BID #20 tablet Referrals: [facility] [Provider Group] - Follow up in [address] [facility] [Provider Group] - Follow up in 1 week
[2019-02-13 15:48] LABS: A TYPE INFLUENZA AG NEGATIVE (NEGATIVE); B INFLUENZA AG POSITIVE (NEGATIVE)
[2019-02-13 17:18] VITALS: BP 138/8
== END 2019-02-13 17:09 | disposition home or self-care (01) ==
LOC: ER 13:34
DX: J10.1 Influenza due to other identified influenza virus with other respiratory manifestations (principal); H66.003 Acute suppurative otitis media without spontaneous rupture of ear drum, bilateral; R05 Cough; R06.02 Shortness of breath; H92.03 Otalgia, bilateral; F17.200 Nicotine dependence, unspecified, uncomplicated; J44.9 Chronic obstructive pulmonary disease, unspecified; R50.9 Fever, unspecified
CPT/HCPCS: 36415; 86308; 87804; 99283

== ENCOUNTER 2019-05-02 12:48 | Emergency (ER) | payer SELFPAY ==
[2019-05-02 12:54] VITALS: BP 150/83
--- NOTE | 2019-05-02 13:01 | ER Document Report ---
HPI - HPI Time Seen by Provider: 05/02/19 12:56 Onset: Other Onset/Duration: Waxing and waning Quality of pain: Sharp, Stabbing, Throbbing Pain Level: 3 Exacerbated by: Movement, Walking Notes: This 48-year-old female presented to the emergency room today this is a 48-year-old female presented to the emergency room today stating that she had pain to her right back radiating down the right lower extremity laterally intermittent tingling in her toes. She has had this before this tends to be a little bit worse. - REPRODUCTIVE Reproductive: DENIES: : - MUSCULOSKELETAL Musculoskeletal: REPORTS: Extremity pain Past Medical History - General Information source: Patient - Social History Smoking Status: Never Smoker Cigarette use (# per day): No Chew tobacco use (# tins/day): No Smoking Education Provided: No Frequency of alcohol use: None Drug Abuse: None Family History: Reviewed & Not Pertinent Patient has suicidal ideation: No Patient has homicidal ideation: No Pulmonary Medical History: Reports: Hx Asthma, Hx Bronchitis, Hx COPD Neurological Medical History: Reports: Hx Migraine Renal/ Medical History: Reports: Hx Kidney Stones. Denies: Hx Peritoneal Dialysis GI Medical History: Reports: Hx Gastroesophageal Reflux Disease Musculoskeletal Medical History: Reports Hx Arthritis Skin Medical History: Reports Hx Cellulitis Traumatic Medical History: Reports: Hx Fractures Past Surgical History: Reports: Hx Cholecystectomy, Hx Orthopedic Surgery - right knee - Immunizations Immunizations up to date: Yes Hx Diphtheria, Pertussis, Tetanus Vaccination: No Vertical Provider Document - CONSTITUTIONAL Agree With Documented VS: Yes - INFECTION CONTROL TRAVEL OUTSIDE OF THE [place] IN LAST 30 DAYS: No - HEENT HEENT: Atraumatic, Normocephalic, PERRLA - NECK Neck: Normal Inspection - RESPIRATORY Respiratory: Breath Sounds Normal - CARDIOVASCULAR Cardiovascular: Regular Rate, Regular Rhythm - GI/ABDOMEN Gastrointestinal: Abdomen Soft, Abdomen Non-Tender - MUSCULOSKELETAL/EXTREMETIES Notes: No numbness no tingling no loss of bowel or bladder function no saddle anesthesia ambulatory with a rhythmic and purposeful gait. Course - Vital Signs Vital signs: Temp Pulse Resp BP Pulse Ox 97.6 F 90 18 150/83 H 93 05/02/19 12:50 05/02/19 12:50 05/02/19 12:50 05/02/19 12:50 05/02/19 12:50 Discharge - Discharge Clinical Impression: Sciatica Qualifiers: Laterality: right Qualified Code(s): M54.31 - Sciatica, right side Condition: Good Disposition: HOME, SELF-CARE Instructions: Low Back Pain ([facility]), Warm Packs ([facility]) Additional Instructions: Warm compresses 4-5 times a day. Must follow-up with PMD for PT referral. Return to ER for any change worsening condition. Prescriptions: Methocarbamol [Robaxin-750] 750 mg PO TID #60 tablet Tramadol HCl [Ultram 50 mg Tablet] 50 mg PO ASDIR PRN #20 tablet PRN Reason:
== END 2019-05-02 13:14 | disposition home or self-care (01) ==
LOC: ER 12:48
DX: M54.31 Sciatica, right side (principal); M54.9 Dorsalgia, unspecified; J44.9 Chronic obstructive pulmonary disease, unspecified
CPT/HCPCS: 99283

== ENCOUNTER 2019-05-21 17:42 | Emergency (ER) | payer SELFPAY ==
[2019-05-21 17:49] VITALS: BP 145/89
--- NOTE | 2019-05-21 18:03 | ER Document Report ---
HPI - HPI Time Seen by Provider: 05/21/19 17:58 Notes: 48-year-old female patient presented to the emergency department chief complaint of possible right ankle injury. Patient reports yesterday she was walking and she twisted her ankle. She reports she has tried icing and elevating it with m inimal relief. She reports she is able to bear weight on it however it is painful. She denies any history of fractures to this ankle in the past. - REPRODUCTIVE Reproductive: DENIES: : Past Medical History - General Information source: Patient - Social History Smoking Status: Never Smoker Family History: Reviewed & Not Pertinent Pulmonary Medical History: Reports: Hx Asthma, Hx Bronchitis, Hx COPD Neurological Medical History: Reports: Hx Migraine Renal/ Medical History: Reports: Hx Kidney Stones. Denies: Hx Peritoneal Dialysis GI Medical History: Reports: Hx Gastroesophageal Reflux Disease Musculoskeletal Medical History: Reports Hx Arthritis Skin Medical History: Reports Hx Cellulitis Traumatic Medical History: Reports: Hx Fractures Past Surgical History: Reports: Hx Cholecystectomy, Hx Orthopedic Surgery - right knee - Immunizations Immunizations up to date: Yes Hx Diphtheria, Pertussis, Tetanus Vaccination: No Vertical Provider Document - CONSTITUTIONAL Notes: PHYSICAL EXAMINATION: GENERAL: Well-appearing, well-nourished and in no acute distress. HEAD: Atraumatic, normocephalic. EYES: Pupils equal round extraocular movements intact, conjunctiva are normal. ENT: Nares patent NECK: Normal range of motion LUNGS: No respiratory distress Musculoskeletal: Normal range of motion, swelling noted to lateral right ankle, strong dorsalis pedis pulse, cap refill less than 3 seconds, normal sensation distal to area of concern. NEUROLOGICAL: Normal speech. PSYCH: Normal mood, normal affect. SKIN: Warm, Dry, normal turgor, no rashes or lesions noted. - INFECTION CONTROL TRAVEL OUTSIDE OF THE [place] IN LAST 30 DAYS: No Course - Re-evaluation Re-evalutation: X-ray is negative. Patient will be placed in an ankle stirrup splint and on crutches. Patient will be discharged home at this time. - Vital Signs Vital signs: Temp Pulse Resp BP Pulse Ox 97.6 F 101 H 20 145/89 H 94 05/21/19 17:47 05/21/19 17:47 05/21/19 17:47 05/21/19 17:47 05/21/19 17:47 Procedures - Immobilization Right ankle Pre-Proc Neuro Vasc Exam: Normal Immobilizer type: Ankle stirrup, Crutches Performed by: PCT Post-Proc Neuro Vasc Exam: Normal Discharge - Discharge Clinical Impression: Right ankle sprain Qualifiers: Encounter type: initial encounter Involved ligament of ankle: unspecified ligament Qualified Code(s): S93.401A - Sprain of unspecified ligament of right ankle, initial encounter Condition: Stable Disposition: HOME, SELF-CARE Additional Instructions: Your x-ray does not show any acute fracture. You have a sprained ankle. Keep the area elevated, apply ice 20 minutes every 2 hours, and use crutches as needed. You should take [id number] Tylenol as needed for pain since you are allergic to ibuprofen. Please return if you have worsening pain and swelling, fever greater than 101, you notice spreading redness from the area, or have any other symptoms that are concerning to you. Please follow-up with orthopedic surgery if your symptoms have not improved in the next 2-3 weeks.
--- NOTE | 2019-05-21 18:36 | RADIOLOGY REPORT (SQ) ---
EXAM DESCRIPTION: ANKLE RIGHT COMPLETE IMAGES COMPLETED DATE/TIME: 05/21/2019 6:15 pm REASON FOR STUDY: ankle injury COMPARISON: None. NUMBER OF VIEWS: Three views. TECHNIQUE: AP, lateral, and oblique radiographic images acquired of the right ankle. LIMITATIONS: None. FINDINGS: MINERALIZATION: Normal. BONES: No acute fracture or dislocation. No worrisome bone lesions. JOINTS: No effusions. SOFT TISSUES: No soft tissue swelling. No foreign body. OTHER: No other significant finding. IMPRESSION: NEGATIVE STUDY OF THE RIGHT ANKLE. NO RADIOGRAPHIC EVIDENCE OF ACUTE INJURY. TECHNICAL DOCUMENTATION: JOB ID: [id number] 2010 [employer]- All Rights Reserved Reading location - IP/workstation name: [email or web address]
== END 2019-05-21 18:59 | disposition home or self-care (01) ==
LOC: ER 17:42
DX: S93.401A Sprain of unspecified ligament of right ankle, initial encounter (principal); X50.0XXA Overexertion from strenuous movement or load, initial encounter; Z90.49 Acquired absence of other specified parts of digestive tract
CPT/HCPCS: 99283

== ENCOUNTER 2019-06-11 17:13 | Emergency (ER) | payer SELFPAY ==
--- NOTE | 2019-06-11 17:29 | ER Document Report ---
ED Extremity Problem, Lower - General Chief Complaint: Foot Pain Stated Complaint: RIGHT GREAT TOE PAIN, SWELLING Time Seen by Provider: 06/11/19 17:26 Primary Care Provider: [facility] [Provider Group] - Follow up as needed [facility] [Provider Group] - Follow up as needed [facility] [Provider Group] - Follow up as needed [facility] [Provider Group] - Follow up as needed Mode of Arrival: Wheelchair Information source: Patient Notes: 48-year-old female presented to ED for complaint of right foot pain times a week. She states is the right great toe up to the middle of her foot and has been painful for about a week. She states she has not had any injuries. She states she has never had gout in the past but someone suggested it may be gout. She states she does not eat seafood eat organ meat mostly eats chicken and does not drink any alcohol. Patient is alert oriented respirations regular nonlabor ed speaking in full sentences. TRAVEL OUTSIDE OF THE [place] IN LAST 30 DAYS: No - HPI Patient complains to provider of: Pain, Swelling Location: Foot Occurred: Last week Where: Home Onset/Duration: Gradual Quality of pain: Sharp, Throbbing Severity: Moderate Pain Level: 4 Recent injury: No Associated symptoms: Painful ambulation Exacerbated by: Movement, Walking Relieved by: Elevation - Related Data Allergies/Adverse Reactions: ibuprofen [Ibuprofen] Allergy (Verified 06/11/19 17:20) Past Medical History - General Information source: Patient - Social History Smoking Status: Current Every Day Smoker Cigarette use (# per day): Yes - Half pack Chew tobacco use (# tins/day): No Smoking Education Provided: Yes Frequency of alcohol use: None Drug Abuse: None Lives with: Family Family History: Reviewed & Not Pertinent Patient has homicidal ideation: No - Past Medical History Cardiac Medical History: Reports: None Pulmonary Medical History: Reports: Hx Asthma, Hx Bronchitis, Hx COPD EENT Medical History: Reports: None Neurological Medical History: Reports: Hx Migraine Endocrine Medical History: Reports: None Renal/ Medical History: Reports: Hx Kidney Stones Malignancy Medical History: Reports: None GI Medical History: Reports: Hx Gastroesophageal Reflux Disease Musculoskeletal Medical History: Reports Hx Arthritis Skin Medical History: Reports Hx Cellulitis Psychiatric Medical History: Reports: None Traumatic Medical History: Reports: Hx Fractures Infectious Medical History: Reports: None Past Surgical History: Reports: Hx Cholecystectomy, Hx Orthopedic Surgery - right knee - Immunizations Immunizations up to date: Yes Hx Diphtheria, Pertussis, Tetanus Vaccination: No Review of Systems - Review of Systems Constitutional: No symptoms reported EENT: No symptoms reported Cardiovascular: No symptoms reported Respiratory: No symptoms reported Gastrointestinal: No symptoms reported Genitourinary: No symptoms reported Female Genitourinary: No symptoms reported Musculoskeletal: Other - Right foot pain to the great toe and up to the middle of the foot Skin: No symptoms reported Hematologic/Lymphatic: No symptoms reported Neurological/Psychological: No symptoms reported -: Yes All other systems reviewed and negative Physical Exam - Vital signs Vitals: Temp Pulse Resp BP Pulse Ox 98.8 F 100 18 144/118 H 95 06/11/19 17:18 06/11/19 17:18 06/11/19 17:18 06/11/19 17:18 06/11/19 17:18 Interpretation: Normal - General General appearance: Appears well, Alert - HEENT Head: Normocephalic, Atraumatic Eyes: Normal Pupils: PERRL - Respiratory Respiratory status: No respiratory distress Chest status: Nontender Breath sounds: Normal Chest palpation: Normal - Cardiovascular Rhythm: Regular Heart sounds: Normal auscultation Murmur: No - Abdominal Inspection: Normal Distension: No distension Bowel sounds: Normal Tenderness: Nontender Organomegaly: No organomegaly - Back Back: Normal, Nontender - Extremities General upper extremity: Normal inspection, Nontender, Normal color, Normal ROM, Normal temperature General lower extremity: Normal ROM, Normal temperature, Normal weight bearing. No: Michele's sign Foot: Tender - Medial side of her foot to the instep and great toe, No evidence of FB. No: Abrasion, Deformity, Ecchymosis, Edema, Instability, Laceration, Metatarsal compress. pain, Nail injury, Navicular tenderness, Puncture wound, Tender 5th metatarsal, Unable to bear weight - Painful to bear weight - Neurological Neuro grossly intact: Yes Cognition: Normal Orientation: AAOx4 Nick Coma Scale Eye Opening: Spontaneous Delmar Coma Scale Verbal: Oriented Nick Coma Scale Motor: Obeys Commands Nick Coma Scale Total: 15 Speech: Normal Motor strength normal: LUE, RUE, LLE, RLE Sensory: Normal - Psychological Associated symptoms: Normal affect, Normal mood - Skin Skin Temperature: Warm Skin Moisture: Dry Skin Color: Normal Course - Re-evaluation Re-evalutation: 06/11/19 18:43 X-ray showed mild soft tissue edema. She states it is very tender to palpation. I did give her instructions on gout and gout diet because she stated she a friend and told her that it could possibly be gout. She has never had gout does not have any of the normal risk factors for gout she does not drink she has never had gout she does not eat seafood or organ meat or a lot of red meat. Give her the instructions and now informed her she would need to follow-up with her primary care doctor. She states she is allergic to ibuprofen but takes naproxen has not had any for 2 days I did treat her with naproxen and instructed her to follow-up with primary care. Patient did verbalize understanding and agreement treatment plan and patient was discharged home. - Vital Signs Vital signs: Temp Pulse Resp BP Pulse Ox 98.8 F 100 18 144/118 H 95 06/11/19 17:20 06/11/19 17:18 06/11/19 17:18 06/11/19 17:18 06/11/19 17:18 - Diagnostic Test Radiology reviewed: Image reviewed, Reports reviewed Discharge - Discharge Clinical Impression: Right foot pain Condition: Stable Disposition: HOME, SELF-CARE Additional Instructions: You were seen today for pain in your foot for about a week. You state you have not had any known injury. You have asked could this possibly be gout. It is a possibility but it does not look like typical gout. You state you have naproxen you have not taken for 2 days. Use your naproxen for your pain and follow-up with your primary doctor. Gout You have been diagnosed as having gout. Gout is a problem caused by an excess of uric acid, a natural chemical found in the body. The cause of this disease is unknown. Gout arthritis occurs when crystals of uric acid form in the joints. The big toe is the most common joint involved, but any joint can become affected. Persons with gout may also form uric acid kidney stones, resulting in flank pain and blood in the urine. Nodules of uric acid may form under the skin. The first step of treatment is to decrease the inflammation in the joint with antiinflammatory medication. Medication to lower the uric acid level in the blood may then be prescribed. This medication should be taken regularly, as any sudden change in dosage may provoke an attack of gout. Some foods, such as red meat, can provoke an attack in some gout sufferers. Call the doctor if new symptoms arise, or if you do not improve. Gout Diet Changing your diet can decrease the uric acid in your blood. High levels of uric acid cause gouty arthritis and uric acid kidney stones. If you have gout, you should avoid meats that are high in purine. Meat products to avoid include liver, kidneys, and brains. In general, poultry is better than red meats. Seafoods to avoid include anchovies, sardines, jalloh, mackerel, and scallops. In addition to limiting purine-rich foods, people with gout should limit protein intake to 10-15% of total calories. Carbohydrate intake should be around 50% of total daily calories. Limit fat intake to 30% of total daily calories. Cholesterol intake should be less than 300 mg/day. Maintain or achieve a healthy body weight. Weight loss should be gradual. Rapid weight loss can actually increase uric acid levels temporarily. Alcohol, especially beer, should be avoided. Get plenty of fluids. This dilutes urinary uric acid, and helps prevent uric acid kidney stones. Drink eight to twelve cups of water daily. Anti-Inflammatory Medication You have received a prescription for an antiinflammatory agent. This is an excellent, safe drug for pain control. In addition, it has potent antiinflammatory effects which are beneficial, especially in the treatment of injuries, arthritis, or tendonitis. It's best to take this medicine with food. Persons with ulcer disease or allergy to aspirin should notify their physician of this before taking this drug. Take the medication exactly as prescribed. Don't take additional doses unless instructed to do so by your doctor. If you develop wheezing, shortness of breath, hives, faintness, stomach pain, vomiting, or dark black stools, return for re-evaluation at once. FOLLOW-UP CARE: If you have been referred to a physician for follow-up care, call the physicians office for an appointment as you were instructed or within the next two days. If you experience worsening or a significant change in your symptoms, notify the physician immediately or return to the Emergency Department at any time for re-evaluation. Forms: Elevated Blood Pressure Referrals: [facility] [Provider Group] - Follow up as needed [facility] [Provider Group] - Follow up as needed [facility] [Provider Group] - Follow up as needed [facility] [Provider Group] - Follow up as needed
--- NOTE | 2019-06-11 18:02 | RADIOLOGY REPORT (SQ) ---
EXAM DESCRIPTION: FOOT RIGHT COMPLETE IMAGES COMPLETED DATE/TIME: 06/11/2019 5:37 pm REASON FOR STUDY: pain and swelling for a week COMPARISON: None. NUMBER OF VIEWS: Three views. TECHNIQUE: AP, lateral and oblique radiographic images acquired of the right foot. LIMITATIONS: None. FINDINGS: MINERALIZATION: Normal. BONES: No acute fracture or dislocation. No worrisome bone lesions. JOINTS: No effusions. SOFT TISSUES: Soft tissue swelling. No foreign body. OTHER: No other significant finding. IMPRESSION: 1. Soft tissue swelling. 2. No acute osseous findings. TECHNICAL DOCUMENTATION: JOB ID: [id number] 2010 [employer]- All Rights Reserved Reading location - IP/workstation name: [email or web address]
[2019-06-11] MEDS ORDERED: NAPROXEN 250 MG TABLET PO ONE (18:32)
[2019-06-11 18:50] VITALS: BP 133/78
== END 2019-06-11 18:48 | disposition home or self-care (01) ==
LOC: ER 17:13
DX: M79.671 Pain in right foot (principal); M79.674 Pain in right toe(s); R60.0 Localized edema; F17.210 Nicotine dependence, cigarettes, uncomplicated; J44.9 Chronic obstructive pulmonary disease, unspecified; Z88.8 Allergy status to other drugs, medicaments and biological substances
CPT/HCPCS: 99283

== ENCOUNTER 2019-08-01 14:55 | Emergency (ER) | payer SELFPAY ==
[2019-08-01 15:08] VITALS: BP 136/96
[2019-08-01] MEDS ORDERED: HYDROCODONE/ACETAMINOPHEN 5-325 MG TABLET PO ONE (16:11)
--- NOTE | 2019-08-01 16:12 | ER Document Report ---
HPI - HPI Patient complains to provider of: right foot pain Time Seen by Provider: 08/01/19 16:06 Pain Level: 4 Context: 48-year-old female presents to the emergency room complaining of persistent right foot pain for the past several months. She states she injured it a month ago after twisting it in a dog's bed. States she has been going to physical therapy and is not improving. Painful to walk. Physical therapy is concerned about a possible stress fracture. She has had no new trauma or injury. She has been unable to follow-up with orthopedics secondary to finances. Patient has been seen in the ER previous times for the same complaints. Associated Symptoms: None Exacerbated by: Movement, Walking Relieved by: Denies Similar symptoms previously: Yes Recently seen / treated by doctor: Yes - Multiple ER visits for similar complaints - ROS Systems Reviewed and Negative: Yes All other systems reviewed and negative - CONSTITUTIONAL Constitutional: DENIES: Fever - NEURO Neurology: DENIES: Weakness - RESPIRATORY Respiratory: DENIES: Trouble Breathing - REPRODUCTIVE Reproductive: DENIES: : - DERM Skin Color: Normal Skin Problems: None Past Medical History - General Information source: Patient - Social History Smoking Status: Current Every Day Smoker Chew tobacco use (# tins/day): No Frequency of alcohol use: None Drug Abuse: None Family History: Reviewed & Not Pertinent Patient has homicidal ideation: No Pulmonary Medical History: Reports: Hx Asthma, Hx Bronchitis, Hx COPD Neurological Medical History: Reports: Hx Migraine Renal/ Medical History: Reports: Hx Kidney Stones. Denies: Hx Peritoneal Dialysis GI Medical History: Reports: Hx Gastroesophageal Reflux Disease Musculoskeletal Medical History: Reports Hx Arthritis Skin Medical History: Reports Hx Cellulitis Traumatic Medical History: Reports: Hx Fractures Past Surgical History: Reports: Hx Cholecystectomy, Hx Orthopedic Surgery - right knee - Immunizations Immunizations up to date: Yes Hx Diphtheria, Pertussis, Tetanus Vaccination: No Vertical Provider Document - CONSTITUTIONAL Agree With Documented VS: Yes Exam Limitations: No Limitations General Appearance: Mild Distress - INFECTION CONTROL TRAVEL OUTSIDE OF THE [place] IN LAST 30 DAYS: No - HEENT HEENT: Atraumatic, Normocephalic - NECK Neck: Normal Inspection, Supple - RESPIRATORY Respiratory: Breath Sounds Normal, No Respiratory Distress, Chest Non-Tender. negative: Rales, Rhonchi, Wheezing - CARDIOVASCULAR Cardiovascular: Regular Rate, Regular Rhythm, No Murmur - MUSCULOSKELETAL/EXTREMETIES Musculoskeletal/Extremeties: FROM, Tender - Tenderness along the right lateral distal foot proximal to the right great toe. There is no obvious deformity. Painful to touch. - NEURO Level of Consciousness: Awake, Alert Motor/Sensory: No Motor Deficit, No Sensory Deficit Notes: Right pedal pulse. Capillary refill less than 3 seconds. - DERM Integumentary: Warm, Dry, No Rash Course - Re-evaluation Re-evalutation: 08/01/19 17:50 Reviewed lab and CAT scan results with patient. Counseled on need to follow-up outpatient with orthopedics as CAT scan and testing for gout are both negative. Patient was provided with on-call physician. Continue with her current home medications. Patient was given strict return to the emergency room guidelines. Return for any new or worsening symptoms. All questions were answered. Patient verbalized understanding and agrees with plan of care. - Vital Signs Vital signs: Temp Pulse Resp BP Pulse Ox 99.0 F 96 16 136/96 H 94 08/01/19 16:07 08/01/19 15:07 08/01/19 15:07 08/01/19 15:07 08/01/19 15:07 - Diagnostic Test Radiology reviewed: Reports reviewed Discharge - Discharge Clinical Impression: Pain, foot, right, chronic Condition: Stable Disposition: HOME, SELF-CARE Instructions: Chronic Pain Control ([facility]) Additional Instructions: Take your current home medications. Tylenol and or Motrin for pain. Follow-up with orthopedics or primary care physician as discussed. Return for new or worsening symptoms. Referrals: ÁLVARO BRODY JR, [ACTIVE PROVISIONAL STAFF] - Follow up as needed
--- NOTE | 2019-08-01 17:34 | RADIOLOGY REPORT (SQ) ---
EXAM DESCRIPTION: CT RT LOWER EXTREMITY WITHOUT IMAGES COMPLETED DATE/TIME: 08/01/2019 5:06 pm REASON FOR STUDY: right foot pain COMPARISON: None. TECHNIQUE: Axial noncontrast CT images were obtained of the right foot with sagittal and coronal rec onstructions. LIMITATIONS: None. FINDINGS: No fracture or dislocation. Mild age related arthrosis. Mineralization is normal. Soft tissues are within normal limits. IMPRESSION: No acute findings. TECHNICAL DOCUMENTATION: JOB ID: [id number] 2010 [employer]- All Rights Reserved Reading location - IP/workstation name: [email or web address]
== END 2019-08-01 17:57 | disposition home or self-care (01) ==
LOC: ER 14:55
DX: M79.671 Pain in right foot (principal); G89.29 Other chronic pain; X50.1XXA Overexertion from prolonged static or awkward postures, initial encounter; F17.200 Nicotine dependence, unspecified, uncomplicated; J44.9 Chronic obstructive pulmonary disease, unspecified
CPT/HCPCS: 36415; 84550; 99284